=== PATIENT | male | born 1995 | race Caucasian/White ===

== ENCOUNTER 2017-10-25 07:45 | Day surgery (SDC) | payer BC, MEDICAID ==
[~2017-10-25 07:45] MED LIST: Lactated Ringers 1,000 ML IV SCH; Sodium Chloride 0.9% 10 ML Syringe FLUSH PRN
[2017-10-25] MEDS ORDERED: Propofol 200 MG/20 ML SDV IV ONE (09:00)
[2017-10-25] MEDS ORDERED: Succinylcholine 200 MG/10 ML MDV IV ONE (09:00)
[2017-10-25] MEDS ORDERED: Lactated Ringers 1,000 ML IV ONE (09:00)
[2017-10-25] MEDS ORDERED: Midazolam 1 MG/ML 2 ML SDV IV ONE (09:00)
[2017-10-25] MEDS ORDERED: Dexamethasone 4 MG/ML 5 ML MDV IVPUSH ONE (09:00)
[2017-10-25] MEDS ORDERED: diphenhydrAMINE 50 MG/ML SDV IV ONE (09:00)
[2017-10-25] MEDS ORDERED: Ondansetron 4 MG/2 ML SDV IVPUSH ONE (09:00)
[2017-10-25] MEDS ORDERED: Morphine 10 MG/ML Syringe IVPUSH ONE (09:00)
[2017-10-25] MEDS ORDERED: fentaNYL 100 MCG/2 ML SDV IV ONE (09:00)
[2017-10-25] MEDS ORDERED: Rocuronium 100 MG/10 ML MDV IV ONE (09:00)
--- NOTE | 2017-10-25 09:21 | PCM.HPR ---
H & P Addendum review - H & P Addendum Review Date of Original H & P: 10/15/17 Date Reviewed: 10/25/17 Time Reviewed: 08:30 Patient was Examined: No Changes
--- NOTE | 2017-10-25 09:53 | PCM.OPNOTE ---
- General Post-Op/Procedure Note Date of Surgery/Procedure: 10/25/17 Operative Procedure(s): Tonsillectomy Pre Op Diagnosis: Chronic Tonsillitis Post-Op Diagnosis: Same Anesthesia Technique: General ET Tube Primary Surgeon: Ketan Neff Anesthesia Provider: Elena Le Pathology: Tonsils EBL in mLs: 5 Complications: None Condition: Good
--- NOTE | 2017-10-25 10:48 | PCM.OPNOTE ---
- General Post-Op/Procedure Note Date of Surgery/Procedure: 10/25/17 Operative Procedure(s): Cauterize left tonsil bed Findings: area of bleeding in left upper tonsil bed EBL in mLs: 5 Complications: None Condition: Good
--- NOTE | 2017-10-25 11:23 | OR ---
DATE OF OPERATION: 10/25/2017 SURGEON: Ketan Neff MD PREOPERATIVE DIAGNOSIS: Chronic tonsillitis. POSTOPERATIVE DIAGNOSIS: Chronic tonsillitis. PROCEDURE: Tonsillectomy. ANESTHESIA: General. PROCEDURE: The patient was brought to the operating room, where general endotracheal anesthesia was administered. The oral gag retractor was placed. Both tonsils were enlarged and chronically inflamed with cryptic surfaces. Right tonsil was a bit larger. Nasopharynx was inspected with a dental mirror and no adenoid tissue was visible. The right tonsil was grasped and retracted toward the midline. Electrocautery was used to dissect along his muscular plane with some difficulty because of chronic inflammation. There was some minimal oozing that was controlled with electrocautery. Once the tonsils removed, tonsil sponge was placed for a minute and surgical site reinspected and was hemostatic. The raw surfaces were cauterized. The left tonsil was then removed in a similar fashion without difficulty. No bleeding occurred on this side. The retractor was partially released and surgical sites observed for a minute and remained hemostatic. The retractor was then removed and patient extubated. He returned to recovery in stable condition. ESTIMATED BLOOD LOSS: 5 mL. /[id number] TJM/MODL ADDENDUM: Upon awakening, he became very combative but was still intubated. Some right bright red blood was noted coming from his mouth. The patient was reanesthetized and the oral gag retractor was again inserted. Mouth and nose were suctioned of approximately 5 mL of fresh and old blood. I found one spot that had some bleeding in the left upper pillar that was easily controlled with electrocautery. This is the only source of bleeding that I could find. He was observed for several minutes and remained hemostatic. He was then awakened and extubated and returned to recovery in stable condition. Elena Le, DRAW BENCH OPERATOR estimates, she suctioned about 10 mL of blood, so a total blood loss for the case would be approximately 20 mL /[id number] TJM/MODL MTDD
[2017-10-25] MEDS ORDERED: Acetaminophen/HYDROcodone 325-7.5 MG Tab PO ONE (11:40)
[2017-10-25 13:21] VITALS: BP 124/67
--- NOTE | 2017-10-25 14:20 | OR ---
DATE OF OPERATION: 10/25/2017 SURGEON: Ketan Neff MD ADDENDUM: Upon awakening, he became very combative but was still intubated. Some right bright red blood was noted coming from his mouth. The patient was reanesthetized and the oral gag retractor was again inserted. Mouth and nose were suctioned of approximately 5 mL of fresh and old blood. I found one spot that had some bleeding in the left upper pillar that was easily controlled with electrocautery. This is the only source of bleeding that I could find. He was observed for several minutes and remained hemostatic. He was then awakened and extubated and returned to recovery in stable condition. Elena Le CRNA estimates, she suctioned about 10 mL of blood so total blood loss for the case would be approximately 20 mL. /[id number] SALBADOR/LEXUS
== END 2017-10-25 13:10 | disposition home or self-care (01) ==
LOC: FB.SDS 07:45
PROVIDERS: ATTEND Surgery
DX: J35.01 Chronic tonsillitis (principal); J35.1 Hypertrophy of tonsils; Z88.8 Allergy status to other drugs, medicaments and biological substances; Z79.899 Other long term (current) drug therapy
CPT/HCPCS: 42826; 88304; A9270; J0330; J1100; J1200; J2250; J2270; J2405; J2704; J3010; J7120

== ENCOUNTER 2017-10-30 13:47 | Emergency (ER) | payer BC ==
--- NOTE | 2017-10-30 14:25 | EDM.PDOC ---
ED HPI GENERAL MEDICAL PROBLEM - General Chief Complaint: ENT Problem Stated Complaint: BLEEDING Time Seen by Provider: 10/30/17 13:50 Source of Information: Reports: Patient History Limitations: Reports: No Limitations - History of Present Illness INITIAL COMMENTS - FREE TEXT/NARRATIVE: 22 y.o.w.m s/p tonsillectomy on last sunday, was seen by Dr. Neff yesterday due to a possible post surgical bleed. Dacia was advised to take Hydrocodon and to ice water gurgling. Pt stated the pain did not het better. Pt came to the ed for further care. No N/V/D or any other acute medical issues. BP 1576/89 puse 78 RR 18 Pulse ox 98% on RA. 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: Acetaminophen, NSAIDS (last night.) throat Pain Score (Numeric/FACES): 7 - Related Data Allergies Allergy/AdvReac Type Severity Reaction Status Date / Time bupropion HCl Allergy Hives Verified 10/30/17 13:59 [From Wellbutrin] Home Meds: Home Meds Benzonatate [Benzonatate] 200 mg TID PRN 10/30/17 [History] Dextromethorphan Polistirex [Delsym] 10 ml PO Q12H PRN 10/30/17 [History] Hydrocodone/Acetaminophen [Hydrocodon-Acetaminoph 7.5-325] 1 tab Q4H PRN [History] Ibuprofen 600 mg Q6H PRN 10/30/17 [History] Past Medical History - Past Health History Medical/Surgical History: Denies Medical/Surgical History HEENT History: Reports: None Cardiovascular History: Reports: Hypertension Respiratory History: Reports: None Gastrointestinal History: Reports: None Genitourinary History: Reports: None ACCOUNTING OFFICER History: Reports: None Musculoskeletal History: Reports: Fracture Other Musculoskeletal History: bilat arm fx, fx all fingers, PPS, bilat knee tendonitis Neurological History: Reports: Concussion Psychiatric History: Reports: Anxiety, Bipolar, Depression, Psych Hospitalization(s), PTSD, Suicide Attempt Endocrine/Metabolic History: Reports: Obesity/BMI 30+ Hematologic History: Reports: None Immunologic History: Reports: None Oncologic (Cancer) History: Reports: None Dermatologic History: Reports: None - Infectious Disease History Infectious Disease History: Reports: Chicken Pox - Past Surgical History Head Surgeries/Procedures: Reports: None HEENT Surgical History: Reports: Adenoidectomy, Tonsillectomy GI Surgical History: Reports: Other (See Below) Other GI Surgeries/Procedures: GALLBLADDER NOT REMOVED BUT WAS SCHEDULED FOR IT Musculoskeletal Surgical History: Reports: None Social & Family History - Family History Family Medical History: Noncontributory - Tobacco Use Smoking Status *Q: Former Smoker Years of Tobacco use: 4 Packs/Tins Daily: 0.2 Used Tobacco, but Quit: Yes Month Tobacco Last Used: 2014 - Caffeine Use Caffeine Use: Reports: Tea - Alcohol Use Days Per Week of Alcohol Use: 1 Number of Drinks Per Day: 7 Total Drinks Per Week: 7 - Recreational Drug Use Recreational Drug Use: Yes Drug Use in Last 12 Months: Yes Recreational Drug Type: Reports: Marijuana/Hashish Other Recreational Drug Type: smoked pot last 3 mo ago, quit using. Recreational Drug Last Use: 1 month ago ED ROS ENT - Review of Systems Review Of Systems: See Below Constitutional: Reports: No Symptoms HEENT: Reports: Throat Pain Respiratory: Reports: No Symptoms Cardiovascular: Reports: No Symptoms Endocrine: Reports: No Symptoms GI/Abdominal: Reports: No Symptoms : Reports: No Symptoms Musculoskeletal: Reports: No Symptoms Skin: Reports: No Symptoms Neurological: Reports: No Symptoms Psychiatric: Reports: No Symptoms Hematologic/Lymphatic: Reports: No Symptoms ED EXAM, ENT - Physical Exam Exam: See Below Exam Limited By: No Limitations General Appearance: Alert, WD/WN, Mild Distress Eye Exam: Bilateral Eye: Normal Inspection Ears: Normal External Exam, Normal Canal, Hearing Grossly Normal, Normal TMs Nose: Normal Inspection, Normal Mucousa, No Blood Mouth/Throat: Muffled Voice, Pharyngeal Erythema, Throat Pain (s/o tonsillectomy ) Head: Atraumatic, Normocephalic Neck: Normal Inspection, Supple, Non-Tender, Full Range of Motion Respiratory/Chest: No Respiratory Distress, Lungs Clear, Normal Breath Sounds Cardiovascular: Normal Peripheral Pulses, Regular Rate, Rhythm, No Edema GI/Abdominal: Normal Bowel Sounds, Soft, Non-Tender, No Organomegaly (Male) Exam: Deferred Rectal (Males) Exam: Deferred Back: Normal Inspection, Full Range of Motion Extremities: Normal Inspection, Normal Range of Motion, Non-Tender, No Pedal Edema, Normal Capillary Refill Neurological: Alert, Oriented, CN II-XII Intact, Normal Cognition, Normal Gait Psychiatric: Normal Affect, Normal Mood Skin: Warm, Dry, Intact, Normal Color, No Rash Lymphatic: No Adenopathy Course - Vital Signs Text/Narrative:: 22 y.o.w.m s/p tonsillectomy on last sunday, was seen by Dr. Neff yesterday due to a possible post surgical bleed. Dacia was advised to take Hydrocodon and to ice water gurgling. Pt stated the pain did not het better. Pt came to the ed for further care. No N/V/D or any other acute medical issues. BP 1576/89 puse 78 RR 18 Pulse ox 98% on RA. PE: Postsurgical wound changes, no active bleed, airway is open. Impression: Postsurgical wound changes Tx: Ice to chew on, Toradol, Dr. Neff was consulted Reeam: Improved Plan: D/C with instructions Last Recorded V/S: Last Vital Signs Temp 36.7 C 10/30/17 13:50 Pulse 78 10/30/17 13:50 Resp 18 10/30/17 13:50 BP 156/89 H 10/30/17 13:50 Pulse Ox 96 10/30/17 13:50 - Orders/Labs/Meds Meds: Medications Discontinued Medications Generic Name Dose Route Start Last Admin Trade Name Megan PRN Reason Stop Dose Admin Ketorolac Tromethamine 60 mg 10/30/17 14:24 10/30/17 14:33 Toradol IM 10/30/17 14:25 60 mg ONETIME ONE Administration Departure - Departure Time of Disposition: 15:05 Disposition: Home, Self-Care 01 Condition: Good Clinical Impression: Post-tonsillectomy pain - Discharge Information Instructions: Tonsillectomy, Adult, Care After Referrals: Ketan Neff MD [Primary Care Provider] - Forms: ED Department Discharge Additional Instructions: Please continue your current meds, the ice melt in your mouth or gargle ice water, please follow up with Dr. Neff at clinic as recommended, come back if your symptoms get worse acutely. Hydrocodone as needed for pain. Stop taking Ibuprofen.
[2017-10-30] MEDS: Ketorolac 60 MG/2 ML SDV IM ONE (14:33)
[2017-10-30 15:58] VITALS: BP 140/99
== END 2017-10-30 15:45 | disposition home or self-care (01) ==
LOC: FB.ED 13:47
DX: G89.18 Other acute postprocedural pain (principal); R07.0 Pain in throat; Z98.890 Other specified postprocedural states; I10 Essential (primary) hypertension; Z87.891 Personal history of nicotine dependence; Z79.899 Other long term (current) drug therapy; Z88.8 Allergy status to other drugs, medicaments and biological substances
CPT/HCPCS: 96372; 99283; J1885

== ENCOUNTER 2019-05-10 21:33 | Emergency (ER) | payer SELFPAY ==
[2019-05-10 22:12] VITALS: BP 151/93; PULSE 79
--- NOTE | 2019-05-10 22:16 | EDM.PDOC ---
ED HPI GENERAL MEDICAL PROBLEM - General Stated Complaint: POSSIBLE STD Time Seen by Provider: 05/10/19 21:33 Source of Information: Reports: Patient History Limitations: Reports: No Limitations - History of Present Illness INITIAL COMMENTS - FREE TEXT/NARRATIVE: 24 y.o.w.m with a H/O bipolar disorder-not sexually active for years, noticed a little rash at his penile shaft and was concerned his has STD. Pt had mid dysuria as well. No N/V/D no SOB no CP or any other acute med issues. BP 159/ 93 RR 17 Pulse ox 97% on RA Pulse 87 Temp 36.8 Onset Date: 05/10/19 Onset Time: 16:00 Duration: Hour(s): Location: Reports: Pelvis Quality: Reports: Other Severity: Mild Improves with: Reports: None Worsens with: Reports: None Context: Reports: Other Associated Symptoms: Reports: No Other Symptoms - Related Data Allergies Allergy/AdvReac Type Severity Reaction Status Date / Time bupropion HCl Allergy Hives Verified 05/10/19 22:10 [From Wellbutrin] cats Allergy Other Uncoded 05/10/19 22:10 dogs Allergy Other Uncoded 05/10/19 22:10 Home Meds: Home Meds NK [No Known Home Meds] 05/10/19 [History] Past Medical History - Past Health History Medical/Surgical History: Denies Medical/Surgical History HEENT History: Reports: None Cardiovascular History: Reports: Hypertension Respiratory History: Reports: None Gastrointestinal History: Reports: None Genitourinary History: Reports: None 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 Musculoskeletal History: Reports: Fracture Other Musculoskeletal History: bilat arm fx, fx all fingers, PPS, bilat knee tendonitis Neurological History: Reports: Concussion Psychiatric History: Reports: Anxiety, Bipolar, Depression, Psych Hospitalization(s), PTSD, Suicide Attempt Endocrine/Metabolic History: Reports: Obesity/BMI 30+ Hematologic History: Reports: None Immunologic History: Reports: None Oncologic (Cancer) History: Reports: None Dermatologic History: Reports: None - Infectious Disease History Infectious Disease History: Reports: Chicken Pox - Past Surgical History Head Surgeries/Procedures: Reports: None HEENT Surgical History: Reports: Adenoidectomy, Tonsillectomy GI Surgical History: Reports: Other (See Below) Other GI Surgeries/Procedures: GALLBLADDER NOT REMOVED BUT WAS SCHEDULED FOR IT Musculoskeletal Surgical History: Reports: None Social & Family History - Family History Family Medical History: Noncontributory - Caffeine Use Caffeine Use: Reports: Tea ED ROS GENERAL - Review of Systems Review Of Systems: See Below Constitutional: Reports: No Symptoms HEENT: Reports: No Symptoms Respiratory: Reports: No Symptoms Cardiovascular: Reports: No Symptoms Endocrine: Reports: No Symptoms GI/Abdominal: Reports: No Symptoms : Reports: No Symptoms Musculoskeletal: Reports: No Symptoms Skin: Reports: Rash (minor penile rash) Neurological: Reports: No Symptoms Psychiatric: Reports: No Symptoms Hematologic/Lymphatic: Reports: No Symptoms Immunologic: Reports: No Symptoms ED EXAM, SKIN/RASH Exam: See Below Exam Limited By: No Limitations General Appearance: Alert, WD/WN, Mild Distress Eye Exam: Bilateral Eye: Normal Inspection Ears: Normal External Exam Nose: Normal Inspection Throat/Mouth: Normal Inspection Head: Atraumatic, Normocephalic Neck: Normal Inspection, Supple, Non-Tender, Full Range of Motion Respiratory/Chest: No Respiratory Distress, Lungs Clear, Normal Breath Sounds Cardiovascular: Normal Peripheral Pulses, Regular Rate, Rhythm, No Edema Peripheral Pulses: 1+: Brachial (R) GI/Abdominal: Normal Bowel Sounds, Soft, Non-Tender, No Organomegaly, No Distention, No Abnormal Bruit (Male) Exam: Penile Lesions (minor rash at glance/for skin of penis, old skin debre) Rectal (Males) Exam: Deferred Back Exam: Normal Inspection, Full Range of Motion Extremities: Normal Inspection, Normal Range of Motion, Non-Tender Neurological: Alert, Oriented, Normal Cognition, Normal Gait Psychiatric: Normal Affect, Normal Mood Skin: Warm, Dry, Intact, Normal Color, Rash (minimally, uncleand penis glance.) Characteristics: Other (penis) Lymphatic: No Adenopathy Course - Vital Signs Text/Narrative:: 24 y.o.w.m with a H/O bipolar disorder-not sexually active for years, noticed a little rash at his penile shaft and was concerned his has STD. Pt had mid dysuria as well. No N/V/D no SOB no CP or any other acute med issues. BP 159/ 93 RR 17 Pulse ox 97% on RA Pulse 87 Temp 36.8 PE: WNWD W M with a minimal rash of penial shaft from poor hygiene Labs: UA: NAD Impression: Poor hygiene at penile shaft/Glance Tx: None reexam: Pt was doing fine in the ED Plan: D/C with instructions Last Recorded V/S: Last Vital Signs Temp 36.9 C 05/10/19 21:55 Pulse 79 05/10/19 21:55 Resp 16 05/10/19 21:55 BP 151/93 H 05/10/19 21:55 Pulse Ox 97 05/10/19 21:55 - Orders/Labs/Meds Labs: Laboratory Tests 05/10/19 Range/Units 21:58 Urine Color Yellow (YELLOW) Urine Appearance Clear (CLEAR) Urine pH 7.0 H (5.0-6.5) Ur Specific [place] 1.015 (1.010-1.025) Urine Protein Negative (NEGATIVE) mg/dL Urine Glucose (UA) Normal (NORMAL) mg/dL Urine Ketones Negative (NEGATIVE) mg/dL Urine Occult Blood Negative (NEGATIVE) Urine Nitrite Negative (NEGATIVE) Urine Bilirubin Negative (NEGATIVE) Urine Urobilinogen Normal (NEGATIVE) mg/dL Ur Leukocyte Esterase Negative (NEGATIVE) Urine RBC 0-5 (0-5) Urine WBC 0-5 (0-5) Ur Squamous Epith Cells Few H (NS,R,O) Urine Bacteria Few H (NS) Departure - Departure Time of Disposition: 22:12 Disposition: Home, Self-Care 01 Condition: Good Clinical Impression: Poor personal hygiene - Discharge Information Referrals: PCP,None [Primary Care Provider] - Forms: ED Department Discharge Additional Instructions: Please wash area with soap and water.please f/u, come back if your symptoms get worse acutely
== END 2019-05-10 22:25 | disposition home or self-care (01) ==
LOC: FB.ED 21:33
DX: R46.0 Very low level of personal hygiene (principal); I10 Essential (primary) hypertension; Z88.8 Allergy status to other drugs, medicaments and biological substances; Z91.048 Other nonmedicinal substance allergy status
CPT/HCPCS: 81001; 99282

== ENCOUNTER 2020-02-03 14:13 | Emergency (ER) | payer SELFPAY ==
[2020-02-03] MEDS ORDERED: Cyclobenzaprine 10 MG Tab PO ONE (14:46)
[2020-02-03] MEDS ORDERED: Ibuprofen 800 MG Tab PO ONE (14:46)
[2020-02-03] MEDS ORDERED: Acetaminophen 500 MG Tab PO ONE (14:46)
--- NOTE | 2020-02-03 15:05 | EDM.PDOC ---
ED HPI GENERAL MEDICAL PROBLEM - General Chief Complaint: Lower Extremity Injury/Pain Stated Complaint: HURT KNEE Time Seen by Provider: 02/03/20 14:20 Source of Information: Reports: Patient History Limitations: Reports: No Limitations - History of Present Illness INITIAL COMMENTS - FREE TEXT/NARRATIVE: Patient presented to the ED because of left knee pain. he was walking his dog when another dog was trying to bite his dog he than ran and twisted his left knee. He heard a pop and is c/o of 6/10 pain when he ambulates. Left Knee Pain Score (Numeric/FACES): 5 - Related Data Allergies Allergy/AdvReac Type Severity Reaction Status Date / Time bupropion HCl Allergy Hives Verified 05/10/19 22:10 [From Wellbutrin] cats Allergy Other Uncoded 05/10/19 22:10 dogs Allergy Other Uncoded 05/10/19 22:10 Home Meds: Home Meds Cyclobenzaprine [Flexeril] 10 mg PO TID PRN #15 tab 02/03/20 [Rx] Ibuprofen 800 mg PO TID PRN #30 tablet 02/03/20 [Rx] Past Medical History - Past Health History Medical/Surgical History: Denies Medical/Surgical History HEENT History: Reports: None Cardiovascular History: Reports: Hypertension Respiratory History: Reports: None Gastrointestinal History: Reports: None Genitourinary History: Reports: None VP PLATFORMS History: Reports: None Musculoskeletal History: Reports: Fracture Other Musculoskeletal History: bilat arm fx, fx all fingers, PPS, bilat knee tendonitis Neurological History: Reports: Concussion Other Neuro History: States history of concussion X5. Psychiatric History: Reports: Anxiety, Bipolar, Depression, Psych Hospitalization(s), PTSD, Suicide Attempt Endocrine/Metabolic History: Reports: Obesity/BMI 30+ Hematologic History: Reports: None Immunologic History: Reports: None Oncologic (Cancer) History: Reports: None Dermatologic History: Reports: None - Infectious Disease History Infectious Disease History: Reports: Chicken Pox - Past Surgical History Head Surgeries/Procedures: Reports: None HEENT Surgical History: Reports: Adenoidectomy, Tonsillectomy GI Surgical History: Reports: Other (See Below) Other GI Surgeries/Procedures: GALLBLADDER NOT REMOVED BUT WAS SCHEDULED FOR IT Musculoskeletal Surgical History: Reports: None Social & Family History - Family History Family Medical History: Noncontributory - Tobacco Use Smoking Status *Q: Current Every Day Smoker Years of Tobacco use: 8 Packs/Tins Daily: 0.1 - Caffeine Use Caffeine Use: Reports: Tea - Alcohol Use Days Per Week of Alcohol Use: 0 - Recreational Drug Use Recreational Drug Use: Yes Drug Use in Last 12 Months: Yes Recreational Drug Type: Reports: Marijuana/Hashish Other Recreational Drug Type: Self-medicates with marijuana for anxiety he states. Recreational Drug Use Frequency: Weekly Review of Systems - Review of Systems Review Of Systems: See Below Constitutional: Reports: No Symptoms Ears: Reports: No Symptoms Nose: Reports: No Symptoms Mouth/Throat: Reports: No Symptoms Respiratory: Reports: No Symptoms GI/Abdominal: Reports: No Symptoms Genitourinary: Reports: No Symptoms Musculoskeletal: Reports: No Symptoms Skin: Reports: No Symptoms Neurological: Reports: No Symptoms, Tingling ED EXAM, GENERAL - Physical Exam Exam: See Below Exam Limited By: No Limitations General Appearance: Alert Ears: Normal External Exam Nose: Normal Inspection Throat/Mouth: Normal Inspection, No Airway Compromise Neck: Normal Inspection Respiratory/Chest: No Respiratory Distress Cardiovascular: Normal Peripheral Pulses GI/Abdominal: Normal Bowel Sounds Back Exam: Normal Inspection Extremities: Normal Inspection Neurological: Alert, Oriented, CN II-XII Intact Psychiatric: Normal Affect Course - Vital Signs Text/Narrative:: xray left knee-neg ibuprofen 800 mg tylenol 1000 mh flexeril 10 mg Last Recorded V/S: Last Vital Signs Temp 36.8 C 02/03/20 15:28 Pulse 81 02/03/20 15:28 Resp 16 02/03/20 15:28 BP 143/95 H 02/03/20 15:28 Pulse Ox 99 02/03/20 15:28 - Orders/Labs/Meds Meds: Medications Discontinued Medications Generic Name Dose Route Start Last Admin Trade Name Freq PRN Reason Stop Dose Admin Acetaminophen 1,000 mg 02/03/20 14:46 02/03/20 14:58 Tylenol Extra Strength PO 02/03/20 14:47 1,000 mg ONETIME ONE Administration Cyclobenzaprine HCl 10 mg 02/03/20 14:46 02/03/20 14:59 Flexeril PO 02/03/20 14:47 10 mg ONETIME ONE Administration Ibuprofen 800 mg 02/03/20 14:46 02/03/20 14:58 Motrin PO 02/03/20 14:47 800 mg ONETIME ONE Administration Departure - Departure Time of Disposition: 15:00 Disposition: Home, Self-Care 01 Condition: Good Clinical Impression: Left knee sprain - Discharge Information Prescriptions: Cyclobenzaprine [Flexeril] 10 mg PO TID PRN #15 tab PRN Reason: Spasms Ibuprofen 800 mg PO TID PRN #30 tablet PRN Reason: Pain Instructions: Knee Sprain, Adult Referrals: PCP,None [Primary Care Provider] - Forms: ED Department Discharge Additional Instructions: Please read discharge instructions on knee sprain Apply ice take iuprofen 800 mg with tylenol 1000 mg 3 times daily as needed for pain take flexeril 10 mg 3 times daily as needed for pain follow up as needed Sepsis Event Note - Evaluation Sepsis Screening Result: No Definite Risk - Focused Exam Vital Signs: Vital Signs Temp Pulse Resp BP Pulse Ox 02/03/20 15:28 36.8 C 81 16 143/95 H 99 02/03/20 14:15 36.9 C 71 16 135/86 0 L Date Exam was Performed: 02/03/20 Time Exam was Performed: 19:33
[2020-02-03 15:44] VITALS: BP 143/95; PULSE 81
--- NOTE | 2020-02-03 17:07 | CR ---
INDICATION: Fall, generalized knee pain. LEFT KNEE: Four images of the left knee were obtained in frontal, lateral, patellar sunrise, and additional lateral views. An acute fracture, dislocation or other significant bone or joint abnormality was not identified. If occult fracture site is suspected clinically, reexamination in 10 to 14 days may be helpful. If soft tissue occult abnormality is suspected clinically, MRI may be helpful. MTDD
== END 2020-02-03 15:33 | disposition home or self-care (01) ==
LOC: FB.ED 14:13
DX: S83.92XA Sprain of unspecified site of left knee, initial encounter (principal); I10 Essential (primary) hypertension; E66.9 Obesity, unspecified; F17.210 Nicotine dependence, cigarettes, uncomplicated; Z68.31 Body mass index [BMI] 31.0-31.9, adult; Z88.8 Allergy status to other drugs, medicaments and biological substances; Z91.09 Other allergy status, other than to drugs and biological substances
CPT/HCPCS: 73562; 99283; A9270

== ENCOUNTER 2022-05-11 00:10 | Emergency (ER) | payer OTHER ==
[2022-05-11] MEDS ORDERED: Acetaminophen 500 MG Tab PO ONE (00:52)
[2022-05-11 01:03] VITALS: BP 128/89; PULSE 69
== END 2022-05-11 01:10 | disposition home or self-care (01) ==
LOC: FB.ED 00:10
DX: S46.001A Unspecified injury of muscle(s) and tendon(s) of the rotator cuff of right shoulder, initial encounter (principal); I10 Essential (primary) hypertension; E66.9 Obesity, unspecified; Z68.31 Body mass index [BMI] 31.0-31.9, adult; Z88.8 Allergy status to other drugs, medicaments and biological substances; Z91.048 Other nonmedicinal substance allergy status; Z86.16 Personal history of COVID-19; Z79.899 Other long term (current) drug therapy; Z87.891 Personal history of nicotine dependence; X50.0XXA Overexertion from strenuous movement or load, initial encounter; Y99.0 Civilian activity done for income or pay
CPT/HCPCS: 99283; A9270

== ENCOUNTER 2025-02-18 01:08 | Emergency (ER) | payer BC, OTHER ==
[2025-02-18 01:45] LABS: BILIRUBIN,URINE NEGATIVE (NEGATIVE); GLUCOSE,URINE NORMAL (NORMAL); KETONES,URINE NEGATIVE (NEGATIVE); LEUKOCYTE ESTERASE,URINE NEGATIVE (NEGATIVE); NITRITE,URINE NEGATIVE (NEGATIVE); OCCULT BLOOD,URINE NEGATIVE (NEGATIVE); PROTEIN,URINE NEGATIVE (NEGATIVE); UROBILINOGEN,URINE NORMAL (NEGATIVE)
[2025-02-18 01:47] LABS: APPEARANCE,URINE CLEAR (CLEAR); COLOR,URINE YELLOW (YELLOW)
[2025-02-18 02:47] VITALS: BP 120/78; PULSE 72
== END 2025-02-18 02:45 ==
LOC: FB.ED 01:08
DX: N50.812 Left testicular pain (principal); R10.32 Left lower quadrant pain; I10 Essential (primary) hypertension; E66.9 Obesity, unspecified; J45.909 Unspecified asthma, uncomplicated; Z88.8 Allergy status to other drugs, medicaments and biological substances; Z91.048 Other nonmedicinal substance allergy status; Z79.899 Other long term (current) drug therapy; Z79.1 Long term (current) use of non-steroidal anti-inflammatories (NSAID); Z86.16 Personal history of COVID-19; Z87.891 Personal history of nicotine dependence; Z68.34 Body mass index [BMI] 34.0-34.9, adult
CPT/HCPCS: 81003; 99284

== ENCOUNTER 2025-07-19 23:52 | Emergency (ER) | payer BC ==
[2025-07-19] MEDS ORDERED: Ondansetron 4 MG Tab.DIS PO ONE (23:53)
[2025-07-20] MEDS ORDERED: Sodium Chloride 0.9% 10 ML Syringe FLUSH PRN (00:28)
[2025-07-20] MEDS: Ondansetron 4 MG/2 ML SDV IVPUSH ONE (00:39)
[2025-07-20 00:45] LABS: BASOPHILS ABSOLUTE AUTO 0.0 x10-3/uL (0.0-0.3); BASOPHILS PERCENT AUTO 0.4 % (0.3-3.8); EOSINOPHILS ABSOLUTE AUTO 0.0 x10-3/uL (0.0-0.6); EOSINOPHILS PERCENT AUTO 0.4 % (0.1-6.8); LYMPHOCYTES ABSOLUTE AUTO 1.8 x10-3/uL (0.5-4.5); LYMPHOCYTES PERCENT AUTO 18.8 % (15.8-45.3); MEAN PLATELET VOLUME 7.9 fL (6.7-11.0); MONOCYTES ABSOLUTE AUTO 0.7 x10-3/uL (0.0-1.2); MONOCYTES PERCENT AUTO 7.7 % (5.5-15.2); NEUTROPHILS ABSOLUTE AUTO 6.9 x10-3/uL (1.7-6.9); NEUTROPHILS PERCENT AUTO 72.7 % (40.3-71.8); PLATELET COUNT,PLT 373 x10(3)uL (117-477); RED BLOOD CELL COUNT 5.36 x10(6)uL (3.90-5.90); RED CELL DISTRIBUTION WIDTH 13.5 % (12.4-15.0); WHITE BLOOD CELL COUNT,WBC 9.5 x10-3/uL (3.2-10.1)
[2025-07-20 00:49] LABS: BLOOD UREA NITROGEN,BUN 11 mg/dL (7-18); CARBON DIOXIDE,CO2 28 mmol/L (21-32); CHLORIDE,CL 104 mmol/L (100-110); CREATININE 0.9 mg/dL (0.70-1.30); EST CRCL DRUG DOSING (CG) 114.00 mL/min; ESTIMATED GFR 116 mL/min (>60); GLUCOSE RANDOM 106 mg/dL (80-116); POTASSIUM,K 3.9 mmol/L (3.5-5.3); SODIUM,NA 140 mmol/L (135-145)
[2025-07-20 00:54] LABS: A/G RATIO 1.1; ALANINE AMINOTRANSFERASE,ALT 38 U/L (12-36); ASPARTATE AMNIOTRANSFERASE,AST 21 IU/L (5-25); BILIRUBIN TOTAL 0.8 mg/dL (0.1-1.3); PROTEIN TOTAL,TP 8.2 g/dL (6.0-8.0)
[2025-07-20] MEDS: Ketorolac 30 MG/ML SDV IVPUSH ONE (02:10)
[2025-07-20 02:31] VITALS: BP 121/86; PULSE 65
== END 2025-07-20 02:39 | disposition home or self-care (01) ==
LOC: FB.ED 23:52
DX: S06.0X0A Concussion without loss of consciousness, initial encounter (principal); E86.0 Dehydration; I10 Essential (primary) hypertension; Z86.16 Personal history of COVID-19; Z91.048 Other nonmedicinal substance allergy status; Z88.8 Allergy status to other drugs, medicaments and biological substances; Z79.899 Other long term (current) drug therapy; X58.XXXA Exposure to other specified factors, initial encounter; Y93.89 Activity, other specified
CPT/HCPCS: 36415; 70450; 80053; 83605; 83735; 85025; 96361; 96374; 96375; 99284; J1885; J2405; J7030; Q0162